=== PATIENT | male | born 1995 | race Caucasian/White ===

== ENCOUNTER 2017-06-23 20:37 | Emergency (ER) | payer SELFPAY ==
[~2017-06-23] VITALS: Ht 182.9 cm; Wt 74.8 kg
[2017-06-23 21:03] LABS: BILIRUBIN,URINE NEGATIVE (NEG); GLUCOSE,URINE NEGATIVE (NEG); NITRITE,URINE NEGATIVE (NEG); PH,URINE 7.5; PROTEIN,URINE 30 mg/dL (NEG-TRACE)
[2017-06-23 21:13] LABS: BACTERIA,URINE 0 /HPF (0-FEW); RBC,URINE OCC /HPF (0-2)
--- NOTE | 2017-06-23 21:17 | PHYS DOC ---
Past Medical History Past Medical History: No Pertinent History Past Surgical History: Other Additional Past Surgical Histo: L. KNEE Alcohol Use: Occasionally Drug Use: None Adult General Chief Complaint Chief Complaint: FLANK PAIN HPI HPI Patient is a 21 year old male presents to the emergency department stating that he has been having hematuria that started yesterday. He states that he developed bilateral flank pain that started today. He denies any nausea or vomiting. He does state a few days ago he had fever and chills. Patient denies any previous history of kidney stones. He denies any abdominal pain or discomfort. Patient does state he is sexually active with one partner. He denies any penile drainage. Review of Systems Review of Systems Constitutional: Denies fever or chills [] Eyes: Denies change in visual acuity, redness, or eye pain [] HENT: Denies nasal congestion or sore throat [] Respiratory: Denies cough or shortness of breath [] Cardiovascular: No additional information not addressed in HPI [] GI: Denies abdominal pain, nausea, vomiting, bloody stools or diarrhea [] : Denies dysuria C/o hematuria [] Musculoskeletal: bilateral flank pain Integument: Denies rash or skin lesions [] Neurologic: Denies headache, focal weakness or sensory changes [] Endocrine: Denies polyuria or polydipsia [] All other systems were reviewed and found to be within normal limits, except as documented in this note. Current Medications Current Medications Current Medications Medications (Trade) Dose Ordered Sig/Maribel Start Time Stop Time Status Last Admin Dose Admin Sodium Chloride 1,000 ml @ 1,000 mls/hr 1X ONCE 06/23/17 21:30 06/23/17 22:29 06/23/17 21:30 1,000 MLS/HR Allergies Allergies Allergies Coded Allergies Type Severity Reaction Last Updated Verified Penicillins Allergy Intermediate 06/23/17 Yes amoxicillin Allergy Intermediate 06/23/17 Yes Physical Exam Physical Exam Constitutional: Well developed, well nourished, no acute distress, non-toxic appearance. [] HENT: Normocephalic, atraumatic, bilateral external ears normal, oropharynx moist, no oral exudates, nose normal. [] Eyes: PERRLA, EOMI, conjunctiva normal, no discharge. [] Neck: Normal range of motion, no tenderness, supple, no stridor. [] Cardiovascular:Heart rate regular rhythm, no murmur [] Lungs & Thorax: Bilateral breath sounds clear to auscultation [] Abdomen: Bowel sounds hypoactive, soft, no tenderness, no masses, no pulsatile masses. [] Skin: Warm, dry, no erythema, no rash. [] Back: No tenderness, bilateral CVA tenderness. [] Extremities: No tenderness, no cyanosis, no clubbing, ROM intact, no edema. [] Neurologic: Alert and oriented X 3, normal motor function, normal sensory function, no focal deficits noted. [] Psychologic: Affect normal, judgement normal, mood normal. [] Current Patient Data Vital Signs Vital Signs Date Time Temp Pulse Resp B/P (MAP) Pulse Ox O2 Delivery O2 Flow Rate FiO2 06/23/17 20:58 98.4 58 16 120/62 (81) 98 Room Air 98.4 Lab Values Laboratory Tests Test 06/23/17 20:40 06/23/17 21:00 Urine Collection Type Unknown Urine Color Yellow Urine Clarity Clear Urine pH 7.5 Urine Specific [place] 1.010 Urine Protein 30 mg/dL (NEG-TRACE) Urine Glucose (UA) Negative mg/dL (NEG) Urine Ketones (Stick) Negative mg/dL (NEG) Urine Blood Negative (NEG) Urine Nitrite Negative (NEG) Urine Bilirubin Negative (NEG) Urine Urobilinogen Dipstick 1.0 mg/dL (0.2 mg/dL) Urine Leukocyte Esterase Negative (NEG) Urine RBC Occ /HPF (0-2) Urine WBC 1-4 /HPF (0-4) Urine Transitional Epithelial Cells Occ /LPF Urine Amorphous Sediment Present /HPF Urine Bacteria 0 /HPF (0-FEW) Urine Mucus Mod /LPF White Blood Count 8.3 x10^3/uL (4.0-11.0) Red Blood Count 4.95 x10^6/uL (4.30-5.70) Hemoglobin 15.8 g/dL (13.0-17.5) Hematocrit 46.0 % (39.0-53.0) Mean Corpuscular Volume 93 fL (79-100) Mean Corpuscular Hemoglobin 32 pg (25-35) Mean Corpuscular Hemoglobin Concent 34 g/dL (31-37) Red Cell Distribution Width 12.9 % (11.5-14.5) Platelet Count 251 x10^3/uL (140-400) Neutrophils (%) (Auto) 61 % (31-73) Lymphocytes (%) (Auto) 25 % (24-48) Monocytes (%) (Auto) 12 % (0-9) H Eosinophils (%) (Auto) 1 % (0-3) Basophils (%) (Auto) 1 % (0-3) Neutrophils # (Auto) 5.1 x10^3uL (1.8-7.7) Lymphocytes # (Auto) 2.1 x10^3/uL (1.0-4.8) Monocytes # (Auto) 1.0 x10^3/uL (0.0-1.1) Eosinophils # (Auto) 0.1 x10^3/uL (0.0-0.7) Basophils # (Auto) 0.1 x10^3/uL (0.0-0.2) Sodium Level 142 mmol/L (136-145) Potassium Level 4.0 mmol/L (3.5-5.1) Chloride Level 103 mmol/L (98-107) Carbon Dioxide Level 29 mmol/L (21-32) Anion Gap 10 (6-14) Blood Urea Nitrogen 9 mg/dL (8-26) Creatinine 0.9 mg/dL (0.7-1.3) Estimated GFR (Cockcroft-Gault) 107.6 BUN/Creatinine Ratio 10 (6-20) Glucose Level 86 mg/dL (70-99) Calcium Level 9.3 mg/dL (8.5-10.1) Total Bilirubin 0.4 mg/dL (0.2-1.0) Aspartate Amino Transferase (AST) 13 U/L (15-37) L Alanine Aminotransferase (ALT) 23 U/L (16-63) Alkaline Phosphatase 70 U/L (46-116) Total Protein 7.3 g/dL (6.4-8.2) Albumin 4.0 g/dL (3.4-5.0) Albumin/Globulin Ratio 1.2 (1.0-1.7) Laboratory Tests 06/23/17 21:00 Laboratory Tests 06/23/17 21:00 EKG EKG [] Radiology/Procedures Radiology/Procedures [][facility] [address] [place], [place] [id number] IMAGING REPORT Signed PATIENT: FANNY SORENSON ACCOUNT: [id number] : 1995 LOCATION: ER AGE: 21 SEX: M EXAM STATUS: REG ER ORD. PHYSICIAN: ERICA ABRAHAM APRN REASON: hematuria with bilateral flank pain PROCEDURE: CT ABDOMEN PELVIS WO CONTRAST CT abdomen and pelvis without contrast Indication:severe bilateral flank pain x 1 week, hematuria, no priors. . Technique: Contiguous axial images are obtained through the abdomen and pelvis. No intravenous or oral contrast per request. Multiplanar reformatted images obtained. Exposure: One or more of the following individualized dose reduction techniques were utilized for this examination: 1. Automated exposure control 2. Adjustment of the mA and/or kV according to patient size 3. Use of iterative reconstruction technique. Comparison:None are available Findings: Urinary tracts: Several tiny calcifications identified at the lower pole of left kidney. No evidence of obstructive urinary tract calculus. No hydronephrosis. Evaluation of solid viscera, bowel and vasculature is compromised by the noncontrast technique. Lower thorax: Lung bases are clear. Pneumoperitoneum:No gross pneumoperitoneum. Liver: Unremarkable Spleen: Unremarkable Pancreas: Unremarkable Kidneys:Unremarkable Adrenals:No evidence of mass. Gallbladder: Contracted. Aorta: Abdominal aorta is nonaneurysmal Lymph nodes: No significant enlargement GI tract: No bowel obstruction. No obvious paracolonic inflammatory type changes. Appendix:Visualized, and appears within normal limits. Ascites: No gross ascites. Urinary bladder: Diffuse wall thickening. No evidence of pelvic mass. Bones: Mild endplate irregularities, compatible with developmental etiology, of the vertebrae. IMPRESSION: 1. Minimal nephrolithiasis at the lower pole of the left kidney. No evidence of urinary tract obstruction or obstructive calculus. 2. Diffuse urinary bladder wall thickening is nonspecific, could indicate acute or chronic cystitis. Electronically signed by: Porter Hammond MD (06/23/2017 9:34 PM) [facility] DICTATED and SIGNED BY: PORTER HAMMOND MD DATE: 06/23/172128 CC: ERICA ABRAHAM APRN; NO PCP; NON,STAFF ~ Course & Med Decision Making Course & Med Decision Making Pertinent Labs and Imaging studies reviewed. (See chart for details) Urinalysis was negative. Hemoglobin and hematocrit were stable. Patient was provided with IV fluids here in the emergency department. CT scan of the abdomen and pelvis identified Minimal nephrolithiasis at the lower pole of the left kidney. No evidence of urinary tract obstruction or obstructive calculus. Diffuse urinary bladder wall thickening is nonspecific, could indicate acute or chronic cystitis. Patient will be discharged home with recommendations for Advil or Aleve for pain and discomfort. Recommended plenty of fluids. Also recommended patient to strain all of his urine and follow up with urologist within the next week. Patient has also been tested for STDs and has been offered prophylactic treatment at this time however patient refuses. I've spoken with the patient and/or caregivers. I've explained the patient's condition, diagnosis and treatment plan based on information available to me at this time. I've answered the patient's and/or caregivers questions and addressed any concerns. The patient and/or caregivers have a good understanding the patient's diagnosis, condition and treatment plan as can be expected at this point. Vital signs have been stabilized. The patient's condition is stable for discharge from the emergency department. The patient will pursue further outpatient evaluation with her primary care provider or other designated consulting physician as outlined in the discharge instructions. Patient and/or caregivers are agreeable to this plan of care and follow-up instructions have been explained in detail. The patient and/or caregivers have received these instructions in written format and expressed understanding of these discharge instructions. The patient and her caregivers are aware that if any significant change in condition or worsening of symptoms should prompt him to immediately return to this of the closest emergency department. If an emergent department is not readily available I would encourage him to call 911. [] Dragon Disclaimer Dragon Disclaimer This electronic medical record was generated, in whole or in part, using a voice recognition dictation system. Departure Departure Impression: Primary Impression: Hematuria Disposition: 01 HOME, SELF-CARE Condition: STABLE Referrals: NO PCP (PCP) Patient Instructions: Hematuria, Adult Additional Instructions: Activity as tolerated. Medications as prescribed. Strain all urine. Follow-up with a urologist within the next week. He may follow-up with one at or [facility]. Return back to the emergency department as needed for signs and symptoms that become worse. Problem Qualifiers Primary Impression: Hematuria Hematuria type: unspecified type Qualified Codes: R31.9 - Hematuria, unspecified ERICA ABRAHAM [employer] Jun 23, 2017 21:17
[2017-06-23 21:19] LABS: BASO # 0.1 x10^3/uL (0.0-0.2); BASO % 1 % (0-3); EOS % 1 % (0-3); HEMOGLOBIN 15.8 g/dL (13.0-17.5); LYMPH # 2.1 x10^3/uL (1.0-4.8); LYMPH % 25 % (24-48); MEAN CORPUSCULAR HEMOGLOBIN 32 pg (25-35); MEAN CORPUSCULAR HGB CONC 34 g/dL (31-37); MEAN CORPUSCULAR VOLUME 93 fL (79-100); MONO % 12 % (0-9); NEUT % 61 % (31-73); PLATELET COUNT 251 x10^3/uL (140-400); RED BLOOD COUNT 4.95 x10^6/uL (4.30-5.70); RED CELL DISTRIBUTION WIDTH 12.9 % (11.5-14.5); WHITE BLOOD COUNT 8.3 x10^3/uL (4.0-11.0)
[2017-06-23] MEDS ORDERED: IV NORMAL SALINE 1000ML BAG 1,000 ML IV ONE (21:30)
[2017-06-23 21:33] LABS: CALCIUM 9.3 mg/dL (8.5-10.1); CREATININE 0.9 mg/dL (0.7-1.3); GFR 107.6
--- NOTE | 2017-06-23 21:37 | RAD ---
CT abdomen and pelvis without contrast Indication:severe bilateral flank pain x 1 week, hematuria, no priors. . Technique: Contiguous axial images are obtained through the abdomen and pelvis. No intravenous or oral contrast per request. Multiplanar reformatted images obtained. Exposure: One or more of the following individualized dose reduction techniques were utilized for this examination: 1. Automated exposure control 2. Adjustment of the mA and/or kV according to patient size 3. Use of iterative reconstruction technique. Comparison:None are available Findings: Urinary tracts: Several tiny calcifications identified at the lower pole of left kidney. No evidence of obstructive urinary tract calculus. No hydronephrosis. Evaluation of solid viscera, bowel and vasculature is compromised by the noncontrast technique. Lower thorax: Lung bases are clear. Pneumoperitoneum:No gross pneumoperitoneum. Liver: Unremarkable Spleen: Unremarkable Pancreas: Unremarkable Kidneys:Unremarkable Adrenals:No evidence of mass. Gallbladder: Contracted. Aorta: Abdominal aorta is nonaneurysmal Lymph nodes: No significant enlargement GI tract: No bowel obstruction. No obvious paracolonic inflammatory type changes. Appendix:Visualized, and appears within normal limits. Ascites: No gross ascites. Urinary bladder: Diffuse wall thickening. No evidence of pelvic mass. Bones: Mild endplate irregularities, compatible with developmental etiology, of the vertebrae. IMPRESSION: 1. Minimal nephrolithiasis at the lower pole of the left kidney. No evidence of urinary tract obstruction or obstructive calculus. 2. Diffuse urinary bladder wall thickening is nonspecific, could indicate acute or chronic cystitis. Electronically signed by: Porter Hammond MD (06/23/2017 9:34 PM) [facility]
[2017-06-23 21:39] LABS: ALBUMIN/GLOBULIN RATIO 1.2 (1.0-1.7); TOTAL BILIRUBIN 0.4 mg/dL (0.2-1.0); TOTAL PROTEIN 7.3 g/dL (6.4-8.2)
[2017-06-23 22:21] VITALS: BP 120/62
== END 2017-06-23 22:25 | disposition home or self-care (01) ==
LOC: ER 20:37
DX: R31.9 Hematuria, unspecified (principal); R10.9 Unspecified abdominal pain; Z88.0 Allergy status to penicillin; Z88.1 Allergy status to other antibiotic agents
CPT/HCPCS: 36415; 74176; 80053; 81001; 85025; 87491; 87591; 96360; 99285; J7030